=== PATIENT | female | born 1945 | race Caucasian/White ===

== ENCOUNTER 2017-09-08 05:58 | Inpatient (IN) ==
--- NOTE | 2017-09-07 17:44 | MH ---
cc: Juarez Schuler MD, Steven MD Joseph,Dr. GUAJARDO DATE OF ADMISSION: 09/08/2017 DATE OF ADMISSION: 09/08/2017 ADMITTING DIAGNOSIS: Lumbar degenerative disk disease. HISTORY OF PRESENT ILLNESS: This is a 72-year-old female who presented to us for an evaluation of pain in her right superior buttocks, right lateral hip and posterior thigh to the calf and top of the ankle. She has previously undergone a L2, L3, L4, and L5 hemilaminectomy with medial facetectomy on 10/13/[address] Schuler. She states that she did good for about 3 years after her last surgery, then started to experience pain again. She states she does not have much low back pain. She states that the right lateral hip and top of the right ankle is the worst pain. She denies any left lower extremity symptoms. She has noticed weakness in the right foot when she feels like she is losing control of her foot and she feels like her foot is flapping. She has gone to pain management and had 2 sessions of injections and the first helped her, although the second session did not help. She denies any falls. She denies any bowel or bladder incontinence. She has had physical therapy in February 2016 and she states that this did not help her. She states that hen she lies down she does not have any pain. PAST MEDICAL HISTORY: Significant for hyperlipidemia, hypertension, lumbar degenerative disk disease. PAST SURGICAL HISTORY: Lumbar laminectomy on 09/09/2013, cholecystectomy, bilateral hip replacement, history of melanoma in situ. CURRENT MEDICATIONS: 1. Atorvastatin 10 mg daily. 2. Escitalopram 20 mg daily. 3. CoQ10. 4. Fish oil. This was placed on hold prior to surgical intervention. 5. Magnesium. 6. Temazepam 30 mg p.o. daily. 7. Toprol-XL 50 mg extended release daily. ALLERGIES: SHE HAS NO KNOWN DRUG ALLERGIES. SOCIAL HISTORY: She does drink alcohol. She does not smoke. She quit in 1980. No history of illicit drug use. FAMILY HISTORY: Her mother had leukemia. She at age 70. REVIEW OF SYSTEMS: CONSTITUTIONAL: She denies any fever or chills. EARS, NOSE AND THROAT: No pharyngitis, exudate or bloody drainage from her nose. CARDIOVASCULAR: She denies any chest pain or palpitations. RESPIRATORY: No cough, shortness of breath. GASTROINTESTINAL: No nausea, no vomiting or abdominal pain. GENITOURINARY: No dysuria or hematuria. MUSCULOSKELETAL: Positive for right leg pain. NEUROLOGIC: No difficulty with speech or memory. PSYCHIATRIC: No anxiety or depression. ENDOCRINE: No polyuria or polydipsia. HEMATOLOGIC: No bruising or bleeding tendencies. PHYSICAL EXAMINATION: HEENT: Head is normocephalic, atraumatic. NECK: Supple. No carotid bruits heard on auscultation. LUNGS: Clear to auscultation bilaterally. HEART: Regular rate and rhythm. Normal S1, S2. ABDOMEN: Soft, nontender, positive bowel sounds. SKIN: No cyanosis or erythema. MUSCULOSKELETAL: She has right 4-/5 EHL/dorsiflexion weakness and mild 4/5 iliopsoas weakness. Otherwise, her strength is 5/5 in the lower extremities. She ambulates without any assistive device. NEUROLOGIC: She is awake, alert, and oriented. Cranial nerves 2-12 are grossly intact. Her speech is fluent. Comprehension is good. Sensation is intact in the upper and lower extremities to light touch, although relates subjective numbness in the right dorsal aspect of her foot in the L5 dermatome. Reflexes are diminished in the lower extremities. IMPRESSION: A 72-year-old female with progressive low back pain along with L5 radiculopathy, worse over the past year with right foot dorsiflexion and weakness. She has undergone physical therapy and interventional pain management without much relief. Her symptoms were exacerbated even when she is not doing much activity, although standing and walking aggravates it. She denies any left lower extremity symptoms. She has a history of L2 and L5 decompressive laminectomy in 2013 and did well subsequent to that until about 1-2 years ago. An MRI of the lumbar spine from 05/01/2017 reveals extensive degenerative scoliosis. She has progression of the L4-L5 spondylolisthesis with consequent recurrent significant stenosis along with facet arthropathy and disk protrusion and degeneration. She has multilevel facet arthropathy and degeneration at all levels, but overall stenosis is most significant at L4-L5. She has failed conservative treatment measures and she is requesting surgical intervention. PLAN: We have discussed treatment options with the patient and, given that she has failed conservative measures, we have recommended an L4-L5 transforaminal decompression with interbody fusion, pedicle screw fixation to address the stenosis and associated progressive spondylolisthesis. The procedure as well as the risks, benefits, alternatives, and recovery time were explained in great detail with the patient. We have discussed the risks involved with surgery to include but not limited to bleeding, infection, muscle weakness, voice hoarseness, difficulty swallowing, heart attack, stroke, blood clots, nonfusion, scar tissue formation, among others. She understands that, despite further surgical intervention, the pain and symptoms related to the degenerative scoliosis and facet arthropathy may not dissipate. The patient states that she understands the procedure as well as the risks involved and she was therefore scheduled accordingly. MD Scar Evans PA RKK/MARITA , 05:08 PM , 05:25 PM
[2017-09-08] MEDS ORDERED: Chlorhexidine Gluconate 2% 1 Pack (2 Cloths) TOPICAL SCH (06:30)
[2017-09-08] MEDS ORDERED: Thrombin Topical Soln 5,000 UNIT Vial TOPICAL ONE (06:58)
[2017-09-08] MEDS ORDERED: Bupivacaine/Epinephrine 0.5% Inj 50 ML Vial ONE (06:58)
[2017-09-08] MEDS ORDERED: Vancomycin Inj 1 GM/200 ML PIGGYBACK IV.SIG SCH (07:00)
[2017-09-08] MEDS ORDERED: Sodium Chlor 0.9% Inj 500 ML IV.SIG SCH (07:00)
[2017-09-08] MEDS ORDERED: Bupivacaine/Epinephrine PF Inj 0.5% 30 ML Vial ONE (07:02)
[2017-09-08] MEDS ORDERED: Gelatin Size 100 Topical Foam ONE (07:02)
[2017-09-08] MEDS: Metoprolol Tartrate 25 MG Tablet PO SCH (07:40)
[2017-09-08 08:13] LABS: INR 1.1 Ratio; Prothrombin Time 10.7 sec (9.8-11.6)
[2017-09-08] MEDS ORDERED: Lidocaine PF 1% Inj 5 ML Syringe INFILTRATN ONE (12:00)
[2017-09-08] MEDS ORDERED: Glycopyrrolate Inj 1 MG/5 ML Syringe IV.PUSH ONE (12:00)
[2017-09-08] MEDS ORDERED: Neostigmine Inj 5 MG/5 ML Syringe IV.PUSH ONE (12:00)
[2017-09-08] MEDS ORDERED: Phenylephrine/NS 1000 MCG/10ML Syringe IV.PUSH ONE (12:00)
[2017-09-08] MEDS ORDERED: Bisacodyl 10 MG Supp RECTAL PRN (12:40)
[2017-09-08] MEDS ORDERED: Magnesium Sulfate Inj 2 GM in Sodium Chlor 0.9% Inj 96 ML IV.SIG PRN (12:41)
[2017-09-08] MEDS ORDERED: Morphine Inj 4 MG/ML Vial IV.PUSH PRN (12:41)
[2017-09-08] MEDS ORDERED: Acetaminophen 325 MG Tablet PO PRN (12:41)
[2017-09-08] MEDS ORDERED: Aluminum/Magnesium/Simethacone Susp 30 ML UDC PO PRN (12:41)
[2017-09-08] MEDS ORDERED: Potassium Chlor 20 mEq Premix 20 MEQ/100 ML PIGGYBACK IV.SIG PRN (12:41)
[2017-09-08] MEDS ORDERED: Calcium Gluconate Inj 1 GM in Sodium Chlor 0.9% Inj 100 ML IV.SIG PRN (12:41)
[2017-09-08] MEDS ORDERED: fentaNYL Citrate Inj 100 MCG/2 ML Ampul ONE (12:50)
--- NOTE | 2017-09-08 12:54 | P.OP ---
- Preoperative Diagnosis (1) Lumbar degenerative disc disease (2) Scoliosis of lumbar region due to degenerative disease of spine in adult (3) Lumbar stenosis with neurogenic claudication (4) Chronic low back pain with right-sided sciatica (5) Lumbar post-laminectomy syndrome (6) Spondylolisthesis, lumbar region Date of procedure: 09/08/17 Procedure: Lumbar L4-5 transforaminal interbody fusion; L4-L5 redo decompressive laminectomy with facetectomy; L4-5 pedicle screw fixation; L4-5 interbody cage placed; microsurgical technique Anesthesia: GETA Surgeon: Juarez Schuler MD Graphic Production Artist: Irena Agarwal Estimated blood loss (mL): 150 Operation and Findings: Following initiation of general endotracheal anesthesia, the patient had a Sifuentes catheter placed along with sequential compression devices. A gram of vancomycin was administered intravenously and he was turned in a prone position on a Lanre frame, on a Sergey table, and all pressure points adequately padded. The lumbosacral region was then prepped with Chloraprep and sterilely draped with Ioban along the usual sterile draping. A midline skin incision using the previous incision site was then made extending from the L4-L5 level after infiltrating the skin with 0.5% Marcaine with epinephrine solution extending down through the fascia. The muscle fibers were split using avascular fatty plane and detached from the underlying facets, transverse process and lateral portion of lamina on the right side and a self-retaining retractor used for exposure. Intraoperative fluoroscopy was also used for level of confirmation along with microscope magnification for further dissection. There was significant facet and ligamentum flavum hypertrophy noted at the L4-5 levels along with spondylolisthesis and post laminectomy defect with epidural fibrosis. Right L4-5 facet was resected with a drill bit along with the lamina and there was severe foraminal and lateral recess stenosis from hypertrophied ligamentum flavum and facet which were decompressed. There was significant disc height collapse along with disc protrusion as well as spondylolisthesis also leading to the foraminal stenosis. Epidural hemostasis was achieved with bipolar cautery and Gelfoam with thrombin. Subsequently entered into the disc space at the L4-5 level with a #15 blade and micky were used for discectomy. I then placed PEEK cage packed with local autograft bone and more local autograft bone was packed adjacent to the cage in interspace for added interbody fusion. With placement of the cage, I was able to distract the interspace and opened up the foramen further bilaterally. Subsequently in order to facilitate the fusion and provide stabilization, pedicle screw fixation was undertaken using [place] spine screws on entry point at the right L4-5 levels at the junction of the transverse process and facet. Subsequently using AP and lateral fluoroscopy tap and screw placement. The screws were then connected with a kaitlynn and locked in place with caps. The construct appeared very secure at this point. The area was then copiously irrigated with Vancomycin solution and powder. The retractors were removed and the bipolar cautery used for hemostasis. The muscle fascia was then approximated using 2-0 Vicryl interrupted stitches and then 3-0 Vicryl subcuticular stitches also placed in interrupted fashion. The final skin closure was completed with Mastisol and Steri-Strips. A sterile dressing was then applied. The patient then turned in supine position, extubated and taken to recovery room. There were no intraoperative complications. All sponge and needle counts were correct at the end of procedure. Estimated blood loss about 150 ml.
[2017-09-08] MEDS: Sod Chloride 0.9% Inj 1,000 ML IV.SIG SCH (15:17)
--- NOTE | 2017-09-08 19:31 | XR ---
EXAM DATE: 09/08/2017 7:18 PM EDT AGE/SEX: 72 years / Female INDICATIONS: Fusion L4,L5 with screws and kaitlynn placement. CLINICAL DATA: This is the patient's initial encounter. Patient reports that signs and symptoms have been present for 1 day and indicates a pain score of Nonresponsive. MEDICAL/SURGICAL HISTORY: None. Discectomy, lumbar. COMPARISON: No prior exams available for comparison. FINDINGS: Spot films reveal unilateral transpedicular screw and kaitlynn fixation across L4-5. There is a grade 1 re sidual anterolisthesis. Disc prosthesis present. CONCLUSION: Postoperative changes as above. Electronically signed by: Parmjit Kimbrough MD 09/08/2017 7:29 PM EDT
[2017-09-08] MEDS: Metoprolol Tartrate 50 MG Tablet PO SCH (21:12)
[2017-09-08] MEDS: Senna/Docusate Sodium 8.6/50 MG Tablet PO SCH (21:12)
[2017-09-08] MEDS: Menthol 5.8 MG Lozenge BUCCAL PRN (21:24)
[2017-09-08 22:02] LABS: Baso % (Auto) 0.5 % (0.0-2.0); Eos # (Auto) 0.1 th/mm3 (0.0-0.4); Eos % (Auto) 1.7 % (0.0-4.0); Hemoglobin 11.7 gm/dL (11.6-15.3); Lymph # (Auto) 1.1 th/mm3 (1.0-4.8); Lymph % (Auto) 16.1 % (9.0-44.0); Mean Corpuscular HGB Conc 33.4 % (32.0-36.0); Mean Corpuscular Hemoglobin 29.7 pg (27.0-34.0); Mean Corpuscular Volume 88.9 fL (80.0-100.0); Mean Platelet Volume 7.3 fL (7.0-11.0); Mono # (Auto) 0.7 th/mm3 (0.0-0.9); Neut # (Auto) 4.9 th/mm3 (1.8-7.7); Neut % (Auto) 71.7 % (16.0-70.0); Platelet Count 211 th/mm3 (150-450); Red Blood Count 3.94 mil/mm3 (4.00-5.30); Red Cell Distribution Width 14.7 % (11.6-17.2); White Blood Count 6.8 th/mm3 (4.0-11.0)
[2017-09-08 22:16] LABS: Calcium 8.5 mg/dL (8.5-10.1); Carbon Dioxide 28.9 meq/L (21.0-32.0); Magnesium 2.1 mg/dL (1.5-2.5); Potassium 4.7 meq/L (3.5-5.1)
[2017-09-09] MEDS: Menthol 5.8 MG Lozenge BUCCAL PRN (05:54)
[2017-09-09] MEDS: Metoprolol Tartrate 25 MG Tablet PO SCH ×2 (08:07→08:20)
[2017-09-09] MEDS: Citalopram 20 MG Tablet PO SCH (08:17)
[2017-09-09] MEDS: Senna/Docusate Sodium 8.6/50 MG Tablet PO SCH ×2 (08:17→20:33)
[2017-09-09] MEDS: Magnesium Oxide 400 MG Tablet PO SCH (08:17)
[2017-09-09] MEDS: Sod Chloride 0.9% Inj 1,000 ML IV.SIG SCH (08:28)
[2017-09-09] MEDS: Metoprolol Tartrate 50 MG Tablet PO SCH ×2 (20:34→20:43)
[2017-09-09] MEDS: Temazepam 15 MG Capsule PO PRN (22:08)
[2017-09-10] MEDS: Menthol 5.8 MG Lozenge BUCCAL PRN (03:28)
[2017-09-10] MEDS: Metoprolol Tartrate 25 MG Tablet PO SCH ×2 (08:04→11:39)
[2017-09-10] MEDS: Citalopram 20 MG Tablet PO SCH (08:04)
[2017-09-10] MEDS: Senna/Docusate Sodium 8.6/50 MG Tablet PO SCH ×2 (08:04→20:46)
[2017-09-10] MEDS: Magnesium Oxide 400 MG Tablet PO SCH (08:04)
--- NOTE | 2017-09-10 08:43 | P.PNNS ---
Subjective Interval history: Delayed note entry, pt seen on 09/09/17. s/p Lumbar L4-5 transforaminal interbody fusion; L4-L5 redo decompressive laminectomy with facetectomy; L4-5 pedicle screw fixation; L4-5 interbody cage placed on 09/08/17. Pt awake and alert, sitting up in chair. Complains of incisional pain controlled with pain medication. Some pain radiating into left anterior thigh. No paresthesias in LEs. Physical Exam Vital signs: Vital Signs 09/09/17 10:27 09/09/17 12:00 09/09/17 16:00 Temperature 97.9 F 98.5 F Pulse Rate 70 78 Respiratory Rate 5 L 14 14 Blood Pressure 100/54 L 100/53 L Pulse Oximetry 93 L 96 09/09/17 16:53 09/09/17 20:00 09/10/17 00:30 Temperature 98.9 F 98.1 F Pulse Rate 70 78 Respiratory Rate 17 16 17 Blood Pressure 102/55 L 100/59 L Pulse Oximetry 95 95 09/10/17 04:00 09/10/17 08:30 Temperature 98.2 F 98.1 F Pulse Rate 75 80 Respiratory Rate 17 19 Blood Pressure 110/61 115/58 L Pulse Oximetry 97 93 L Intake & Output 09/09/17 09/10/17 09/10/17 18:59 06:59 18:59 Intake Total 1000 / 1000 1999 Balance 1000 / 1000 1999 / 1999 Weight 70 kg Intake: IV 1000 / 1000 1000 / 1000 NS + KCl 20 mEq Inj 1,000 ML @ 1000 / 1000 1000 / 1000 100 mls/hr IV.CONT .Q10H RAMÓN Rx #:[id number] Oral 1000 / 1000 Other: # Voids 1 3 # Bowel Movements 0 - Constitutional no acute distress - Routine HEENT Exam Head: Present: normocephalic, atraumatic Eye: Present: PERRL ENT: Present: mucous membranes dry, oropharynx clear - Routine Respiratory Exam Present: CTA bilaterally. Absent: respiratory distress, rhonchi, wheezes - Routine Cardiovascular Exam Present: RRR, S1, S2. Absent: murmur - Routine Abdominal Exam Present: soft, normoactive bowel sounds. Absent: tenderness, distended, firm - Routine Skin Exam Present: intact. Absent: cyanosis, erythema - Routine Neurological Exam Present: alert, oriented X3, normal speech. Absent: sensory deficit, motor deficit, altered mental status, facial asymmetry - Routine Psychiatric Exam Present: normal affect, good insight, good judgment - Urinary Catheter Management Indwelling Urethral Catheter Cath placed during this visit: no Reason for continuing: Other continuation reason Assessment and Plan - Assessment (1) Lumbar degenerative disc disease Code(s): M51.36 - Other intervertebral disc degeneration, lumbar region Status : Acute (2) Scoliosis of lumbar region due to degenerative disease of spine in adult Code(s): M41.56 - Other secondary scoliosis, lumbar region Status: Acute (3) Lumbar stenosis with neurogenic claudication Code(s): M48.062 - Spinal stenosis, lumbar region with neurogenic claudication Status: Acute (4) Chronic low back pain with right-sided sciatica Code(s): M54.41 - Lumbago with sciatica, right side; G89.29 - Other chronic pain Status: Acute (5) Lumbar post-laminectomy syndrome Code(s): M96.1 - Postlaminectomy syndrome, not elsewhere classified Status: Acute (6) Spondylolisthesis, lumbar region Code(s): M43.16 - Spondylolisthesis, lumbar region Status: Acute - Plan Continue with pain control Rehab efforts Lemon swabs for dry mouth continue to take fluids Continue with lumbar brace when oob.
[2017-09-10] MEDS: Sod Chloride 0.9% Inj 1,000 ML IV.SIG SCH (11:38)
--- NOTE | 2017-09-10 13:03 | P.PNNS ---
Subjective Interval history: 09/10/17: Pt awake and alert. Laying in bed. Incisional pain controlled. No radiculopathy in LEs. No paresthesias in LEs. Moves LEs with good strength. Ambulates with walker. Pt is going to go to SNF for continued therapy. Physical Exam Vital signs: Vital Signs 09/09/17 16:00 09/09/17 16:53 09/09/17 20:00 Temperature 98.5 F 98.9 F Pulse Rate 78 70 Respiratory Rate 14 17 16 Blood Pressure 100/53 L 102/55 L Pulse Oximetry 96 95 09/10/17 00:30 09/10/17 04:00 09/10/17 08:00 Temperature 98.1 F 98.2 F Pulse Rate 78 75 Respiratory Rate 17 17 19 Blood Pressure 100/59 L 110/61 Pulse Oximetry 95 97 09/10/17 08:30 09/10/17 11:54 09/10/17 12:51 Temperature 98.1 F 99.0 F Pulse Rate 80 80 Respiratory Rate 19 18 16 Blood Pressure 115/58 L 118/55 L Pulse Oximetry 93 L 96 Intake & Output 09/09/17 09/10/17 09/10/17 18:59 06:59 18:59 Intake Total 1000 / 1000 1999 / 1999 Balance 1000 / 1000 1999 / 1999 Weight 70 kg Intake: IV 1000 / 1000 1000 / 1000 NS + KCl 20 mEq Inj 1,000 ML @ 1000 / 1000 1000 / 1000 100 mls/hr IV.CONT .Q10H RAMÓN Rx #:[id number] Oral 1000 / 1000 Other: # Voids 1 3 # Bowel Movements 0 - Constitutional no acute distress - Routine HEENT Exam Eye: Present: PERRL - Routine Respiratory Exam Present: CTA bilaterally. Absent: respiratory distress, rhonchi, wheezes - Routine Cardiovascular Exam Present: RRR, S1, S2. Absent: murmur - Routine Abdominal Exam Present: soft, normoactive bowel sounds. Absent: tenderness, distended - Routine Skin Exam Absent: cyanosis, erythema - Routine Neurological Exam Present: alert, moving all extremities, normal speech. Absent: sensory deficit , motor deficit, altered mental status - Routine Psychiatric Exam Present: normal affect, cooperative, good judgment. Absent: anxious, agitated - Urinary Catheter Management Indwelling Urethral Catheter Cath placed during this visit: no Reason for continuing: Other continuation reason Assessment and Plan - Assessment (1) Lumbar degenerative disc disease Code(s): M51.36 - Other intervertebral disc degeneration, lumbar region Status : Acute (2) Scoliosis of lumbar region due to degenerative disease of spine in adult Code(s): M41.56 - Other secondary scoliosis, lumbar region Status: Acute (3) Lumbar stenosis with neurogenic claudication Code(s): M48.062 - Spinal stenosis, lumbar region with neurogenic claudication Status: Acute (4) Chronic low back pain with right-sided sciatica Code(s): M54.41 - Lumbago with sciatica, right side; G89.29 - Other chronic pain Status: Acute (5) Lumbar post-laminectomy syndrome Code(s): M96.1 - Postlaminectomy syndrome, not elsewhere classified Status: Acute (6) Spondylolisthesis, lumbar region Code(s): M43.16 - Spondylolisthesis, lumbar region Status: Acute - Plan Continue with pain control Rehab efforts Continue with lumbar brace when oob. Rehab placement tomorrow.
[2017-09-10] MEDS: Metoprolol Tartrate 50 MG Tablet PO SCH (20:47)
[2017-09-10] MEDS: Temazepam 15 MG Capsule PO PRN (23:16)
[2017-09-11] MEDS: Magnesium Oxide 400 MG Tablet PO SCH (08:16)
[2017-09-11] MEDS: Citalopram 20 MG Tablet PO SCH (08:16)
[2017-09-11] MEDS: Senna/Docusate Sodium 8.6/50 MG Tablet PO SCH (08:16)
[2017-09-11] MEDS: Metoprolol Tartrate 25 MG Tablet PO SCH (08:16)
--- NOTE | 2017-09-11 08:30 | P.DCO ---
- Home Health Nursing Order: Wound care and dressing changes - Certification I have seen patient Migdalia Harrington on 09/11/17. My clinical findings support the need for the requested home health care services because: Deconditioned with increased weakness, Limited ability to care for self I certify that my clinical findings support that this patient is homebound because: Post-op weakness
--- NOTE | 2017-09-11 08:58 | P.DCO ---
- Physical Therapy Order: Evaluate and treat, Improve ambulation, Strength and gait training - Home Health Nursing Order: Signs/symptoms of disease process, Wound care and dressing changes - Certification I have seen patient Migdalia Harrington on 09/11/17. My clinical findings support the need for the requested home health care services because: Limited mobility due to disease progression, Deconditioned with increased weakness, High risk of falls I certify that my clinical findings support that this patient is homebound because: Post-op weakness, Unsteady gait/balance, Unable to use public transportation
--- NOTE | 2017-10-06 18:37 | P.DS ---
Date of admission: 09/08/17 05:58 Primary care physician: PROVIDER NON STAFF Attending physician on discharge: Juarez Schuler Brief History from admission: This is a 72 y/o FM who presented to us for an evaluation of pain in her right superior buttocks, right lateral hip and posterior thigh to the calf and top of the ankle. She has previously undergone a L2, L3, L4 and L5 hemilaminectomy with medial facetectomy on 10/13/[address] Schuler. She states that she did good for about 3 years after her last surgery, then started to experience pain again. She states she does not have much low back pain. She states that the right lateral hip and top of the right ankle is the worst pain. She denies any left lower extremity symptoms. She has noticed weakness in the right foot when she feels like she is losing control of her foot and she feels like her foot is flapping. She has gone to pain management and had 2 sessions of injections and the first helped her although the second session did not help. She denies any falls. She denies any bowel or bladder incontinence. She has had physical therapy in February 2016 and she states that this did not help her. She states that when she lies down she does not have any pain. DS: Diagnosis - Discharge Diagnosis (1) Lumbar degenerative disc disease Status: Acute (2) Scoliosis of lumbar region due to degenerative disease of spine in adult Status: Acute (3) Lumbar stenosis with neurogenic claudication Status: Acute (4) Chronic low back pain with right-sided sciatica Status: Acute (5) Lumbar post-laminectomy syndrome Status: Acute (6) Spondylolisthesis, lumbar region Status: Acute DS: Medications - Discharge Medications Prescriptions: cyclobenzaprine 10 mg PO Q8H PRN #60 tab PRN Reason: Muscle Spasm cyclobenzaprine 10 mg PO TID PRN #60 tab PRN Reason: Muscle Spasm hydrocodone-acetaminophen 1 tab PO Q4-6H PRN #60 tab PRN Reason: Pain DS: Summary Hospital Course: Pt was admitted and underwent a Lumbar L4-5 transforaminal interbody fusion; L4 -L5 redo decompressive laminectomy with facetectomy; L4-5 pedicle screw fixation ; L4-5 interbody cage placed; microsurgical technique on 09/08/17 by Juarez Schuler M.D. Post operatively her pain was controlled. Her catheter was removed. PT was consulted and her activity was increased. She was discharged home in stable condition with home health and Home PT. - Time Spent with Patient Total time spent providing and/or coordinating discharge services: Less than 30 minutes - Quality: VTE Deep Vein Thrombosis/Pulmonary Embolism Present on Admission: No Results Procedures completed during hospitalization: Lumbar L4-5 transforaminal interbody fusion; L4-L5 redo decompressive laminectomy with facetectomy; L4-5 pedicle screw fixation; L4-5 interbody cage placed; microsurgical technique on 09/08/17 by Juarez Schuler M.D. - Impressions ITS Impressions Lumbar Spine X-Ray 09/08/17 00:00 CONCLUSION: Postoperative changes as above. Discharge Plan - Discharge Disposition Patient Disposition: W/Home Health Service - Discharge Condition Condition: Stable - Discharge Order Discharge Orders: Discharge Order (Routine); Ordered 09/10/17 Ordered By: Juarez Schuler - Discharge Details Anticipated Discharge Date: 09/11/17 - Physicians Team Primary Care Provider: NON STAFF,PROVIDER Attending Provider: Juarez Schuler Other Providers: ; [facility],Agency ; [facility],Agency - Rxs /Orders / Referrals /Forms Prescriptions: New cyclobenzaprine 10 mg Tablet 10 mg PO Q8H PRN (Reason: Muscle Spasm) Qty: 60 RF: 0 cyclobenzaprine 5 mg Tablet 10 mg PO TID PRN (Reason: Muscle Spasm) Qty: 60 RF: 0 hydrocodone-acetaminophen 10-325 mg Tablet 1 tab PO Q4-6H PRN (Reason: Pain) Qty: 60 RF: 0 Continue atorvastatin 10 mg Tablet 10 mg PO HS cholecalciferol (vitamin D3) [Vitamin D3] 1,000 unit Capsule 1,000 unit PO DAILY citalopram 20 mg Tablet 20 mg PO DAILY magnesium oxide 400 mg Capsule 400 mg PO DAILY metoprolol tartrate 50 mg Tablet 50 mg PO HS metoprolol tartrate 25 mg Tablet 25 mg PO DAILY omega 0-bud-esd-fish oil [Fish Oil] 1,000 mg (120 mg-180 mg) Capsule 1 cap PO DAILY pantoprazole 40 mg Tablet,Delayed Release (Dr/Ec) 40 mg PO DAILY temazepam 30 mg Capsule 30 mg PO DAILY PRN (Reason: Insomnia) Discontinued meloxicam 15 mg Tablet 15 mg PO DAILY Ambulatory Orders / Order Sets / DME: Walker With Front Wheels (1 each) (Routine) Location: Determined by Patient Ordered By: Scar Moody Referrals: NON STAFF,PROVIDER [Primary Care Provider] - See Instructions - Discharge Instructions Patient Printed Instructions: Hydrocodone/Acetaminophen (By mouth), Cyclobenzaprine (By mouth), Laminectomy (DC)
== END 2017-09-11 12:51 | disposition home health service (06) ==
LOC: HSDI 05:58 → N05 14:38
PROVIDERS: ADMIT Neurological Surgery; ATTEND Neurological Surgery